=== PATIENT | female | born 1965 | race Caucasian/White ===

== ENCOUNTER 2018-09-16 15:52 | Observation (INO) ==
[2018-09-16] MEDS ORDERED: Aspirin 325 MG TABLET PO ONE (16:09)
[2018-09-16] MEDS: Nitroglycerin 0.4 MG TAB.SUBL SL PRN ×3 (16:32→16:45)
[2018-09-16 16:46] LABS: BUN/Creatinine Ratio 16 (6-26); Blood Urea Nitrogen 14 mg/dL (6-20); Calcium 9.6 mg/dL (8.6-10.3); Carbon Dioxide 23 mEq/L (23-29); Chloride 100 mEq/L (98-107); Glucose 151 mg/dL (70-105); Osmolality,Calculated 279 (280-300); Potassium 3.9 mEq/L (3.5-5.1); Sodium 133 mEq/L (136-145); Troponin I < 0.03 ng/mL (< 0.04); eGFR For Non-African Americans > 60 (> 60)
[2018-09-16] MEDS ORDERED: Nitroglycerin 25 MG/250 ML INFUS..BTL IVC SCH (17:00)
--- NOTE | 2018-09-16 17:21 | Emergency Department Note ---
Disposition Clinical Impression: Chest pain Qualifiers: Chest pain type: unspecified Qualified Code(s): R07.9 - Chest pain, unspecified Disposition: Admitted As Inpatient Condition: Good Time of Disposition: 17:24 General Adult HPI - General Chief complaint: ED Chest Pain Stated complaint: Cp Time Seen by Provider: 09/16/18 16:00 Source: patient Mode of arrival: ambulatory Limitations: no limitations Nursing Notes Reviewed: Yes Vital Signs Reviewed: Yes - History of Present Illness HPI Narrative: 53-year-old female with significant past medical history coronary artery disease with stent placement approximately 8 years ago currently on Plavix and aspirin presenting to the emergency department chief complaint of chest pain. Patient states for the past few days she has had some intermittent chest pains in the left side of her chest. Today the chest pain became significantly worse and started radiating down her left elbow and did not resolve. She states this is exactly how her previous [place] felt. She discloses some diaphoresis and nausea as well. Did not take any medications at home for these symptoms. Pain Scale: 4 - Related Data Home Medications Medication Instructions Recorded Confirmed Clopidogrel [Plavix] 75 mg PO DAILY 06/09/15 09/16/18 Furosemide [Lasix] 40 mg PO DAILY 06/09/15 09/16/18 Aspirin 81 mg PO DAILY 05/02/16 09/16/18 Atorvastatin Calcium [Lipitor] 20 mg PO DAILY 05/02/16 09/16/18 Carvedilol [Coreg] 25 mg PO BID 05/02/16 09/16/18 Citalopram Hydrobromide 40 mg PO DAILY 05/02/16 09/16/18 [Citalopram HBr] DiphenhydraMINE [Benadryl] 50 mg PO QAM 05/02/16 09/16/18 Ibuprofen [Advil] 200 mg PO Q6H PRN 05/02/16 09/16/18 Isosorbide MONOnitrate (24 HR) 90 mg PO DAILY 05/02/16 09/16/18 [Imdur] Lisinopril [Zestril] 5 mg PO DAILY 05/02/16 09/16/18 Orphenadrine Citrate [Orphenadrine 100 mg PO BID 05/02/16 12/01/16 Citrate ER] Oxycodone HCl/Acetaminophen 1 tab PO TID PRN 05/02/16 09/16/18 [Percocet 5-325 mg Tablet] Tramadol HCl [Ultram] 50 mg PO QID PRN 05/02/16 09/16/18 Previous Rx's Medication Instructions Recorded Nitroglycerin [Nitrostat] 0.4 mg SL AD PRN #30 tab.subl 05/03/16 Ondansetron ODT [Zofran ODT] 4 mg SL Q8HR PRN #12 tab.rapdis 10/19/16 Allergies Allergy/AdvReac Type Severity Reaction Status Date / Time naproxen [From Aleve] Allergy Hives Verified 12/01/16 11:11 All systems ED: reviewed and negative except as stated. Constitutional: Denies: fever Eyes: Reports: as per HPI ENT ED: Reports: as per HPI Cardiovascular: Reports: chest pain Respiratory: Denies: dyspnea Gastrointestinal: Reports: nausea Genitourinary: Reports: as per HPI Musculoskeletal: Reports: as per HPI Integumentary: Reports: as per HPI Neurological: Reports: as per HPI Psychiatric: Reports: as per HPI Endocrine: Reports: as per HPI Hematological/Lymphatic: Reports: as per HPI Allergic/Immunologic: Reports: as per HPI Past Medical History - Past Medical History Attestation: Yes The following information was validated with the patient. Medical history: Reports: arthritis, coronary artery disease, GERD, hyperlipidemia, hypertension, myocardial infarction Surgical history: Reports: angioplasty/stent, appendectomy Psychiatric history: Reports: anxiety, depression - Social History Smoking Status: Former smoker Smokeless Tobacco Status: No Alcohol use: Reports: occasionally Drug use: Reports: none Physical Exam - General Limitations: no limitations General appearance: alert, in no apparent distress - Head Head exam: atraumatic, normocephalic, normal inspection - Eye Eye exam: Absent: scleral icterus - ENT ENT exam: mucous membranes moist - Neck Neck exam: Present: full ROM - Chest Chest inspection: Present: symmetric chest wall rise - Respiratory Respiratory exam: Present: normal lung sounds bilaterally. Absent: respiratory distress, wheezes - Cardiovascular Cardiovascular exam: Present: regular rate, normal rhythm, normal heart sounds - Abdominal Exam Abdominal exam: Present: soft, Non-Tender. Absent: distention, guarding, rebound - Extremities Exam Extremities exam: Present: full ROM - Neurological Exam Neurological exam: Present: alert, oriented X3 - Psychiatric Psychiatric exam: Present: anxious - Skin Skin exam: Present: warm Course Course Narrative: 53-year-old female presenting for chest pain. In the room she is alert and oriented 3 and hemodynamically stable. Patient states that these symptoms feel exactly like her previous [place]. Initial EKG does not show any ST segment elevation. We will obtain basic laboratory analysis including troponin and plan for admission for the patient. Patient agrees with this plan. - Reevaluation(s) Reevaluation #1: Patient's laboratory analysis including troponin within normal limits. At this time will plan to admit the patient for further evaluation and treatment of her chest pain. Nitroglycerin trial reduced her pain from 9 to a 4 therefore we will starting nitro drip on the patient to resolve her chest pain. Patient remains alert and oriented 3 and hemodynamically stable. Patient agrees with this plan. I spoke with the hospitalist telecommunications engineer Dr. Benavidez who agrees to accept the patient at this time. Vital Signs Temperature 98.6 F 09/16/18 16:00 Pulse Rate 88 09/16/18 16:00 Respiratory Rate 18 09/16/18 16:00 Blood Pressure 163/98 09/16/18 16:00 O2 Sat by Pulse Oximetry 100 09/16/18 16:00 Temperature 98.6 F 09/16/18 16:00 Pulse Rate 89 09/16/18 16:49 Respiratory Rate 18 09/16/18 16:49 Blood Pressure 130/88 09/16/18 16:49 O2 Sat by Pulse Oximetry 97 09/16/18 16:49 Oxygen Delivery Oxygen Delivery Room Air Medical Decision Making - Lab Data Result diagrams: 09/16/18 17:45 09/16/18 16:13 Lab Results 09/16/18 09/16/18 Range/Units 16:03 16:13 Sodium 133 L (136-145) mEq/L Potassium 3.9 (3.5-5.1) mEq/L Chloride 100 (98-107) mEq/L Carbon Dioxide 23 (23-29) mEq/L BUN 14 (6-20) mg/dL Creatinine 0.85 (0.60-1.20) mg/dL Est GFR ( Amer) > 60 (> 60) Est GFR (Non-Af Amer) > 60 (> 60) BUN/Creatinine Ratio 16 (6-26) Glucose 151 H (70-105) mg/dL Calculated Osmolality 279 L (280-300) Calcium 9.6 (8.6-10.3) mg/dL Troponin I < 0.03 (< 0.04) ng/mL B-Natriuretic Peptide 17 (Less than 100) pg/mL - EKG Data EKG #1 EKG attestation: Yes I reviewed and interpreted this EKG. EKG results narrative: Sinus rhythm. 87 bpm. NH interval 146, QRS 76, QTC 433. No sign of acute ST segment elevation or ischemia. Compared to previous EKG completed on 07/17 2017 no significant changes noted Attestation Statement - Attestation Attestation: I, David Walker, examined this patient and my medical decision-making was reviewed with the SURGICAL ASSISTANT CERTIFIED/PA/Advanced Practice Nurse/Resident Physician. I agree with the documented findings, disposition and treatment plan as described except to the extent set forth below. 51-year-old female presents emergency Department with concerns of acute onset chest pain. Patient states symptoms started today with minimal exertion, she stated the pain was a tightness in the center of her chest that radiated to the left upper extremity and left jaw. Pain improved with nitroglycerin. This feels similar to her previous heart attack. Patient does not have evidence of STEMI on EKG. I reviewed the EKG with the resident and agree with the interpretation. Patient is awake alert and answered questions appropriate emergency department. Vital signs are stable. She is a history of previous stent. She takes Plavix and and aspirin daily. Patient was given additional aspirin in the emergency department. She will be admitted to hospitalist for further care and evaluation. Initial troponin was negative.
[2018-09-16] MEDS ORDERED: *HR* Promethazine 25 MG/ML VIAL IVP PRN (17:27)
[2018-09-16] MEDS ORDERED: Naloxone 0.4 MG/ML INJ IVP PRN (17:27)
[2018-09-16] MEDS ORDERED: Mag Hydrox/Al Hydrox/Simeth 30 ML UDC PO PRN (17:27)
[2018-09-16] MEDS ORDERED: MOM Conc 10 ML UD.LIQ PO PRN (17:27)
[2018-09-16] MEDS ORDERED: Ondansetron 4 MG/2 ML VIAL IVP PRN (17:27)
--- NOTE | 2018-09-16 17:46 | Internal Med History&Physical ---
Date of Encounter: 09/16/18 Time of Encounter: 17:43 Internal Medicine - H&P: HPI Admitted From: Home Plans for Post Hospital Care: Home History of present illness: Ms. Gagnon is a 53 year old female with significant past medical history of coronary artery disease with stents placement approximately 8 years ago currently on Plavix and aspirin presenting to the emergency department chief complaint of chest pain. Patient states for the past few days she has had some intermittent chest pains in the left side of her chest. Today the chest pain became significantly worse and started radiating down her left elbow and did not resolve. She states this is exactly how her previous [place] felt. She discloses some diaphoresis and nausea as well. Did not take any medications at home for these symptoms. En route to the ED, she received 2 doses of NTG with significant relief of chest pain. She smokes in the past but quit about one and half years a go. In the ED, her vitals were stable, labs were unremarkable, EKG and CXR showed no acute concerning changes. She will be admitted for further evaluation. Code status discussed and she wishes to be full code. Past Med Surg Social Fam HX - Past Medical History Medical history: arthritis, coronary artery disease, GERD, hyperlipidemia, hypertension, myocardial infarction Psychiatric history: anxiety, depression - Past Surgical History Surgical History: angioplasty/stent, appendectomy Additional surgical history: tonsils and adenoids, 3 cardiac stents - Social History Smoking Status: Former smoker Smokeless Tobacco Status: No Alcohol use: occasionally Drug use: none - Family History Mother Living Status: Still Living Hx Family Cancer: Yes Father Living Status: Still Living Hx Family Cardiac Disorders: Yes Hx Family Endocrine Disorder: Yes (diabetes) Internal Medicine - H&P: Meds Clopidogrel [Plavix] 75 mg PO DAILY 06/09/15 [History] Furosemide [Lasix] 40 mg PO DAILY 06/09/15 [History] Aspirin 81 mg PO DAILY 05/02/16 [History] Atorvastatin Calcium [Lipitor] 20 mg PO DAILY 05/02/16 [History] Carvedilol [Coreg] 25 mg PO BID 05/02/16 [History] Citalopram Hydrobromide [Citalopram HBr] 40 mg PO DAILY 05/02/16 [History] DiphenhydraMINE [Benadryl] 50 mg PO QAM 05/02/16 [History] Ibuprofen [Advil] 200 mg PO Q6H PRN 05/02/16 [History] Isosorbide MONOnitrate (24 HR) [Imdur] 90 mg PO DAILY 05/02/16 [History] Lisinopril [Zestril] 5 mg PO DAILY 05/02/16 [History] Orphenadrine Citrate [Orphenadrine Citrate ER] 100 mg PO BID 05/02/16 [History] Oxycodone HCl/Acetaminophen [Percocet 5-325 mg Tablet] 1 tab PO TID PRN 05/02/16 [History] Tramadol HCl [Ultram] 50 mg PO QID PRN 05/02/16 [History] Nitroglycerin [Nitrostat] 0.4 mg SL AD PRN #30 tab.subl 05/03/16 [Rx] Ondansetron ODT [Zofran ODT] 4 mg SL Q8HR PRN #12 tab.rapdis 10/19/16 [Rx] Allergy/AdvReac Type Severity Reaction Status Date / Time naproxen [From Aleve] Allergy Hives Verified 12/01/16 11:11 All Systems PM: A 10-system review of systems was performed and is negative for pertinent findings except as documented above in the HPI. Review of systems: REVIEW OF SYSTEMS: CONSTITUTIONAL: No weight loss, fever, chills, weakness or fatigue. HEENT: Eyes: No visual loss, blurred vision, double vision or yellow sclerae. Ears, Nose, Throat: No hearing loss, sneezing, congestion, runny nose or sore throat. SKIN: No rash or itching. CARDIOVASCULAR: see HPI. RESPIRATORY: No shortness of breath, cough or sputum. GASTROINTESTINAL: No anorexia, nausea, vomiting or diarrhea. No abdominal pain or blood. GENITOURINARY: No dysuria, urgency, or frequency. NEUROLOGICAL: No headache, dizziness, syncope, paralysis, ataxia, numbness or tingling in the extremities. No change in bowel or bladder control. MUSCULOSKELETAL: No muscle, back pain, joint pain or stiffness. HEMATOLOGIC: No anemia, bleeding or bruising. LYMPHATICS: No enlarged nodes. No history of splenectomy. PSYCHIATRIC: No history of depression or anxiety. ENDOCRINOLOGIC: No reports of sweating, cold or heat intolerance. No polyuria or polydipsia. - Constitutional Vitals: Temp Pulse Resp BP Pulse Ox 98.6 F 89 18 130/88 97 09/16/18 16:00 09/16/18 16:49 09/16/18 16:49 09/16/18 16:49 09/16/18 16:49 General appearance: Present: cooperative, A&O X 3, answers questions appropriately Exam: PHYSICAL EXAMINATION: GENERAL APPEARANCE: The patient is alert, oriented and in no acute distress. HEENT: Head is normocephalic. The sinuses are nontender. Pupils are equal and reactive. The nares are patent. Oropharynx clear without lesions. NECK: Supple without lymphadenopathy. HEART: Regular rate and rhythm. LUNGS: No crackles or wheezes are heard. ABDOMEN: Soft, nontender, nondistended with good bowel sounds heard. Inguinal area is normal. EXTREMITIES: Without cyanosis, clubbing or edema. NEUROLOGICAL: Gross nonfocal. SKIN: Warm and dry without any rash. Internal Med - H&P Results - Labs CBC & Chem 7: 09/16/18 16:13 Labs: BMP 09/16/18 16:13 Sodium 133 L Potassium 3.9 Chloride 100 Carbon Dioxide 23 BUN 14 Creatinine 0.85 Glucose 151 H Calcium 9.6 Cardiac Enzymes 09/16/18 Range/Units 16:13 Troponin I < 0.03 (< 0.04) ng/mL - Impressions ITS Impressions Chest X-Ray 09/16/18 16:03 IMPRESSION: No acute cardiopulmonary process D/ / Ok Frankel / Ok Frankel Interpreting Provider: Ok Frankel - Assessment and Plan (1) Chest pain Current Visit: Yes Status: Acute Assessment and plan: 54-year-old female with past medical history of hypertension, hyperlipidemia, formal smoker, and CAD with stents presented with acute onset of left-sided chest pain. Pressure-like, radiated to the left arm, relieved by nitroglycerin. She had 2 stents placed in LAD and RCA in 2010. She was placed on DAPT until today and she reported compliant with medications. Recent cardiac workup was about 2 years ago, when a stress test was abnormal, cardiology was consulted at that time, medical management was recommended. First set of troponin was negative, EKG has no acute ST-T change. We will continue cycling troponin, telemetry monitoring, EKG as needed. Echocardiogram and a stress nuclear test in a.m. Cardiology consulted, appreciate help. Qualifiers: Chest pain type: unspecified Qualified Code(s): R07.9 - Chest pain, unspecified (2) CAD (coronary artery disease) Current Visit: No Status: Acute Assessment and plan: Continue home medications including DAPT. Qualifiers: Coronary Disease-Associated Artery/Lesion type: [place] artery [place] vs. transplanted heart: [place] heart Associated angina: with other forms of angina Qualified Code(s): I25.118 - Atherosclerotic heart disease of [place] coronary artery with other forms of angina pectoris (3) Hypertension Current Visit: No Status: Chronic Assessment and plan: BP controlled, continue home medications. Qualifiers: Hypertension type: essential hypertension Qualified Code(s): I10 - Essential (primary) hypertension (4) Cervical radiculopathy Current Visit: No Status: Chronic Assessment and plan: Pain control. (5) DVT prophylaxis Current Visit: Yes Status: Acute Assessment and plan: Heparin subcutaneous. - Time Spent With Patient Total time spent is greater than 50% in coordination of care (as documented) at patient's floor/unit and/or counseling patient: Greater than 35 minutes
[2018-09-16 18:20] LABS: Basophils # 0.1 K/mcL (0.0-0.2); Basophils % 0.9 %; Eosinophils # 0.1 K/mcL (0.0-0.6); Hematocrit 37.9 % (35.3-44.9); Immature Granulocytes % 0.3 % (0-4); Lymphocytes # 1.6 K/mcL (0.6-4.6); Lymphocytes % 20.3 %; Mean Corpuscular HGB Conc 34.3 g/dL (31.6-35.5); Mean Corpuscular Hemoglobin 32.5 pg (28.0-33.3); Mean Corpuscular Volume 94.8 fL (83.0-100.0); Mean Platelet Volume 9.5 fL (9.4-12.4); Monocytes # 0.7 K/mcL (0.0-1.3); Monocytes % 8.3 %; Neutrophils # 5.4 K/mcL (1.6-8.9); Platelet Count 229 K/mcL (140-400); Red Cell Distribution Width 12.7 % (11.5-14.5); Segmented Neutrophils % 69.2 %
[2018-09-16] MEDS: *HR* Heparin 5,000 UNIT/ML VIAL SQ SCH (18:29)
[2018-09-16] MEDS: traMADol 50 MG TABLET PO PRN (20:04)
[2018-09-16] MEDS ORDERED: Isosorbide MONOnitrate (24 HR) 30 MG TAB.ER.24H PO SCH (21:00)
[2018-09-16] MEDS: Venlafaxine XR (24 HR) 75 MG CAP.ER.24H PO SCH (22:11)
[2018-09-17] MEDS: *HR* Heparin 5,000 UNIT/ML VIAL SQ SCH (05:37)
--- NOTE | 2018-09-17 05:54 | Cardiology Consult Note ---
Date of Encounter: 09/17/18 Time of Encounter: 05:50 Assessment and Plan (1) Unstable angina Current Visit: Yes Status: Acute (2) Smoker Current Visit: No Status: Acute Discussion w patient/family: The assessment and plan as outlined above was discussed with the patient and/or family members who expressed understanding and agreement. All questions were answered. Thank you for involving us in the care of your patient. Please call with any questions. History of Present Illness Consult date: 09/17/18 Consult reason: unstable angina Chief complaint: chest pain History of present illness: Ms. Gagnon is a 53 year old female w CAD sp anterior STEMI 2010, HTN, dyslipidemia, DM, previous smoker. She presents with her typical angina, severe retrosternal radiating pain to her left elbow. 2 NTG in ED relieved the pain and she has been comfortable overnight. She last fu with [facility] in 2013. She notes recent panic attacks being treated which is a chest tightness / discomfort. Her angina is left elbow and into upper back. This was first time in a long time of her angina starting in her elbow, then later had a panic attack. Past Med Surg Social Fam HX - Past Medical History Medical history: arthritis, coronary artery disease, GERD, hyperlipidemia, hypertension, myocardial infarction Psychiatric history: anxiety, depression - Past Surgical History Surgical History: angioplasty/stent, appendectomy Additional surgical history: tonsils and adenoids, 3 cardiac stents - Social History Smoking Status: Former smoker Smokeless Tobacco Status: No Alcohol use: occasionally Drug use: none - Family History Mother Living Status: Still Living Hx Family Cancer: Yes Father Living Status: Still Living Hx Family Cardiac Disorders: Yes Hx Family Endocrine Disorder: Yes (diabetes) Medications and Allergies Clopidogrel [Plavix] 75 mg PO DAILY 06/09/15 [History] Furosemide [Lasix] 40 mg PO DAILY 06/09/15 [History] Aspirin 81 mg PO DAILY 05/02/16 [History] Atorvastatin Calcium [Lipitor] 20 mg PO DAILY 05/02/16 [History] Carvedilol [Coreg] 25 mg PO BID 05/02/16 [History] Citalopram Hydrobromide [Citalopram HBr] 40 mg PO DAILY 05/02/16 [History] DiphenhydraMINE [Benadryl] 50 mg PO QAM 05/02/16 [History] Ibuprofen [Advil] 200 mg PO Q6H PRN 05/02/16 [History] Isosorbide MONOnitrate (24 HR) [Imdur] 90 mg PO DAILY 05/02/16 [History] Lisinopril [Zestril] 5 mg PO DAILY 05/02/16 [History] Orphenadrine Citrate [Orphenadrine Citrate ER] 100 mg PO BID 05/02/16 [History] Oxycodone HCl/Acetaminophen [Percocet 5-325 mg Tablet] 1 tab PO TID PRN 05/02/16 [History] Tramadol HCl [Ultram] 50 mg PO QID PRN 05/02/16 [History] Nitroglycerin [Nitrostat] 0.4 mg SL AD PRN #30 tab.subl 05/03/16 [Rx] Ondansetron ODT [Zofran ODT] 4 mg SL Q8HR PRN #12 tab.rapdis 10/19/16 [Rx] Venlafaxine XR (24 HR) [Effexor XR] 75 mg PO DAILY 09/16/18 [History] Allergy/AdvReac Type Severity Reaction Status Date / Time naproxen [From Aleve] Allergy Hives Verified 12/01/16 11:11 All Systems Review: The remainder of the systems were reviewed and are negative - Constitutional Constitutional: no chills, no fever(s) - EENT Eyes: no blurred vision, no loss of vision Nose, mouth and throat: no bleeding gums, no epistaxis - Cardiovascular Cardiovascular: chest pain at rest, chest pain with exertion, no syncope - Respiratory Respiratory: no hemoptysis - Gastrointestinal Gastrointestinal: no hematemesis, no hematochezia - Genitourinary Genitourinary: no hematuria, no nocturia - Musculoskeletal Musculoskeletal: no arthralgias, no myalgias - Integumentary Integumentary: no erythema, no rash - Neurological Neurological: no memory loss, no syncope - Psychiatric Psychiatric: no hallucinations, no panic attacks - Hematological/Lymphatic Hematologic/Lymphatic: no easy bleeding, no easy bruising Physical Examination Vital Signs, Last 4 Hours Temp Pulse Resp BP Pulse Ox 09/17/18 03:30 98.0 F 63 18 118/77 97 General: Conversant HEENT: Atraumatic Neck: No JVD Cardiac: Reg Rate and Rhythm Lungs: Normal Breath Sounds Neuro: Alert and responsive Abdomen: Soft Skin: No rashes noted on visualized skin Musculoskeletal: No Chest Wall Tenderness Extremities: No Edema Results 09/17/18 09:16 09/17/18 09:16 Lab Results 09/16/18 09/16/18 09/16/18 16:03 16:13 17:45 WBC 7.8 Hgb 13.0 Hct 37.9 Plt Count 229 Sodium 133 L Potassium 3.9 Chloride 100 Carbon Dioxide 23 BUN 14 Creatinine 0.85 Glucose 151 H Calcium 9.6 Troponin I < 0.03 B-Natriuretic Peptide 17 09/16/18 22:35 WBC Hgb Hct Plt Count Sodium Potassium Chloride Carbon Dioxide BUN Creatinine Glucose Calcium Troponin I < 0.03 B-Natriuretic Peptide Consult Discharge Plan - Plan Referrals: Miguel Angel Vasquez DO [Primary Care Provider] - (Appointment has been requested.)
[2018-09-17] MEDS ORDERED: Aspirin 81 MG TAB.CHEW PO SCH (09:00)
[2018-09-17] MEDS ORDERED: Isosorbide MONOnitrate (24 HR) 30 MG TAB.ER.24H PO SCH (09:00)
[2018-09-17] MEDS ORDERED: Furosemide 40 MG TABLET PO SCH (09:00)
[2018-09-17 10:12] LABS: Alanine Aminotransferase 23 Units/L (7-52); Albumin/Globulin Ratio 1.9 (1.1-2.2); Alkaline Phosphatase 58 Units/L (34-104); Aspartate Amino Transferase 19 Units/L (13-39); BUN/Creatinine Ratio 18 (6-26); Bilirubin,Total 0.4 mg/dL (0.3-1.0); Blood Urea Nitrogen 13 mg/dL (6-20); Calcium 8.9 mg/dL (8.6-10.3); Carbon Dioxide 24 mEq/L (23-29); Chloride 106 mEq/L (98-107); Chol/HDL Ratio 2.5 (0-4.9); Cholesterol 136 mg/dL (< 200); Globulin 2.1 g/dL (2.4-3.5); Glucose 144 mg/dL (70-105); HDL Cholesterol 55 mg/dL (40-59); LDL Cholesterol,Calculated 36 mg/dL (0-99); Magnesium 1.8 mg/dL (1.6-2.6); Osmolality,Calculated 287 (280-300); Potassium 3.9 mEq/L (3.5-5.1); Sodium 137 mEq/L (136-145); Total Protein 6.1 g/dL (6.4-8.9); Triglycerides 223 mg/dL (< 150); eGFR For Non-African Americans > 60 (> 60)
[2018-09-17] MEDS ORDERED: Regadenoson 0.4 MG/5 ML SYRINGE IVP ONE (10:12)
[2018-09-17 10:30] LABS: Basophils % 0.7 %; Eosinophils # 0.1 K/mcL (0.0-0.6); Eosinophils % 2.6 %; Hematocrit 39.1 % (35.3-44.9); Hemoglobin 13.1 g/dL (11.5-15.4); Immature Granulocytes % 0.2 % (0-4); Lymphocytes # 1.7 K/mcL (0.6-4.6); Lymphocytes % 31.7 %; Mean Corpuscular HGB Conc 33.5 g/dL (31.6-35.5); Mean Corpuscular Hemoglobin 32.5 pg (28.0-33.3); Mean Platelet Volume 9.6 fL (9.4-12.4); Monocytes # 0.5 K/mcL (0.0-1.3); Monocytes % 10.1 %; Neutrophils # 2.9 K/mcL (1.6-8.9); Platelet Count 197 K/mcL (140-400); Red Blood Count 4.03 M/mcL (3.82-4.97); Red Cell Distribution Width 13.1 % (11.5-14.5); Segmented Neutrophils % 54.7 %
--- NOTE | 2018-09-17 11:07 | Internal Med Progress Note ---
Hospitalist Progress Note - Encounter Date of Encounter: 09/17/18 Time of Encounter: 11:05 - Subjective Interval History: She is seen and examined in the room. She has no chest pain currently. - Exam Vitals: Temp Pulse Resp BP Pulse Ox 98.3 F 67 17 126/79 97 09/17/18 10:46 09/17/18 10:46 09/17/18 10:46 09/17/18 10:46 09/17/18 10:46 Exam: PHYSICAL EXAMINATION: GENERAL APPEARANCE: The patient is alert, oriented and in no acute distress. HEENT: Head is normocephalic. The sinuses are nontender. Pupils are equal and reactive. The nares are patent. Oropharynx clear without lesions. NECK: Supple without lymphadenopathy. HEART: Regular rate and rhythm. LUNGS: No crackles or wheezes are heard. ABDOMEN: Soft, nontender, nondistended with good bowel sounds heard. Inguinal area is normal. EXTREMITIES: Without cyanosis, clubbing or edema. NEUROLOGICAL: Gross nonfocal. SKIN: Warm and dry without any rash. - Assessment and Plan (1) Chest pain Current Visit: Yes Status: Acute Assessment and Plan: 09/16 54-year-old female with past medical history of hypertension, hyperlipidemia, formal smoker, and CAD with stents presented with acute onset of left-sided chest pain. Pressure-like, radiated to the left arm, relieved by nitroglycerin. She had 2 stents placed in LAD and RCA in 2010. She was placed on DAPT until today and she reported compliant with medications. Recent cardiac workup was about 2 years ago, when a stress test was abnormal, cardiology was consulted at that time, medical management was recommended. First set of troponin was negative, EKG has no acute ST-T change. We will continue cycling troponin, telemetry monitoring, EKG as needed. Echocardiogram and a stress nuclear test in a.m. Cardiology consulted, appreciate help. 09/17 Was negative 3, EKG has no acute ST-T change, echocardiogram no motion abnormal ity. Pending stress test. Cardiology following, appreciate help. (2) CAD (coronary artery disease) Current Visit: No Status: Acute Assessment and Plan: Continue home medications including DAPT. (3) Hypertension Current Visit: No Status: Chronic Assessment and Plan: BP controlled, continue home medications. (4) Cervical radiculopathy Current Visit: No Status: Chronic Assessment and Plan: Pain control. (5) DVT prophylaxis Current Visit: Yes Status: Acute Assessment and Plan: Heparin subcutaneous. - Time Spent with Patient Total time spent is greater than 50% in coordination of care (as documented) at patient's floor/unit and/or counseling patient: Greater than 35 minutes Plan of Care Discussed with: patient Internal Medicine: Result - Labs CBC & Chem 7: 09/17/18 09:16 09/17/18 09:16 Labs: Short CBC 09/16/18 09/17/18 Range/Units 17:45 09:16 WBC 7.8 5.4 (4.3-11.1) K/mcL Hgb 13.0 13.1 (11.5-15.4) g/dL Hct 37.9 39.1 (35.3-44.9) % Plt Count 229 197 (140-400) K/mcL Neutrophils # 5.4 2.9 (1.6-8.9) K/mcL BMP 09/16/18 09/17/18 16:13 09:16 Sodium 133 L 137 Potassium 3.9 3.9 Chloride 100 106 Carbon Dioxide 23 24 BUN 14 13 Creatinine 0.85 0.74 Glucose 151 H 144 H Calcium 9.6 8.9 Cardiac Enzymes 09/16/18 09/16/18 09/17/18 Range/Units 16:13 22:35 09:16 Troponin I < 0.03 < 0.03 < 0.03 (< 0.04) ng/mL Liver Function 09/17/18 Range/Units 09:16 Total Bilirubin 0.4 (0.3-1.0) mg/dL AST 19 (13-39) Units/L ALT 23 (7-52) Units/L Alkaline Phosphatase 58 (34-104) Units/L Albumin 4.0 (3.5-5.7) g/dL - Impressions Impressions Chest X-Ray 09/16/18 16:03 IMPRESSION: No acute cardiopulmonary process D/ / Ok rFankel / Ok Frankel Interpreting Provider: Ok Frankel Echocardiogram 09/16/18 17:29 Impressions: LVEF 60-65%. Normal LV chamber size, wall thickness and function. Normal right ventricular structure and function. No significant valvular dysfunction. No evidence of pulmonary hypertension. Left Ventricular Wall Motion: Rest Echo Findings All wall segments showed normal motion. Findings: Study Quality * Technically sub-optimal due to poor echocardiographic windows. ECG Findings * Normal sinus rhythm. Left Ventricle * LVEF 60-65%. * Normal LV chamber size, wall thickness and systolic function. * Normal left ventricular diastolic function. Right Ventricle * Normal right ventricular structure and function. Left Atrium * Normal left atrial size. Right Atrium * Normal right atrial size. Interatrial Septum * Interatrial septum not well evaluated. Aortic Valve * Aortic valve not well visualized. * No aortic stenosis. * No aortic regurgitation. Mitral Valve * Normal mitral valve structure. * No mitral stenosis. * Trace mitral regurgitation. Tricuspid Valve * Normal tricuspid valve structure. * No tricuspid stenosis. * Trace tricuspid regurgitation. * Unable to estimate RVSP due to lack of TR jet. * No evidence of pulmonary hypertension. * Estimated RA pressure is 3 mmHg. Pulmonic Valve * Pulmonic valve is not well visualized. * No pulmonic stenosis. * No pulmonic regurgitation. Aorta * Normally sized aortic root. Pericardium * The pericardium appears normal. IVC * The IVC is not dilated. * > 50% respiratory change Consult Discharge Plan - Plan Referrals: Miguel Angel Vasquez DO [Primary Care Provider] - (Appointment has been requested.) (1) Chest pain Qualifiers: Chest pain type: unspecified Qualified Code(s): R07.9 - Chest pain, unspecified (2) CAD (coronary artery disease) Qualifiers: Coronary Disease-Associated Artery/Lesion type: [place] artery [place] vs. transplanted heart: [place] heart Associated angina: with other forms of angina Qualified Code(s): I25.118 - Atherosclerotic heart disease of [place] coronary artery with other forms of angina pectoris (3) Hypertension Qualifiers: Hypertension type: essential hypertension Qualified Code(s): I10 - Essential (primary) hypertension
[2018-09-17] MEDS: Venlafaxine XR (24 HR) 75 MG CAP.ER.24H PO SCH (14:10)
[2018-09-17 15:14] VITALS: BP 118/76
--- NOTE | 2018-09-17 15:18 | Discharge Summary ---
- NOTES TO OUTPATIENT PROVIDER Notes to Outpatient Provider: f/u with PCP within 2 weeks. f/u with cardiology within a month. Orders not resulted at time of discharge: Pending orders 09/17/18 10:35 NM woo perf SPECT multi [NM] Routine Date of Encounter: 09/17/18 Time of Encounter: 15:14 - Discharge Diagnosis (1) Chest pain Priority: Primary Status: Acute Qualifiers: Chest pain type: unspecified Qualified Code(s): R07.9 - Chest pain, unspecified (2) CAD (coronary artery disease) Priority: Secondary Status: Chronic Qualifiers: Coronary Disease-Associated Artery/Lesion type: [place] artery [place] vs. transplanted heart: [place] heart Associated angina: with other forms of angina Qualified Code(s): I25.118 - Atherosclerotic heart disease of [place] coronary artery with other forms of angina pectoris (3) Hypertension Priority: Secondary Status: Chronic Qualifiers: Hypertension type: essential hypertension Qualified Code(s): I10 - Essential (primary) hypertension (4) Cervical radiculopathy Priority: Secondary Status: Chronic (5) DVT prophylaxis Priority: Primary Status: Acute Hospital course: Ms. Gagnon is a 53 year old female with significant past medical history of coronary artery disease with stents placement approximately 8 years ago currently on Plavix and aspirin presenting to the emergency department chief complaint of chest pain. Patient states for the past few days she has had some intermittent chest pains in the left side of her chest. Today the chest pain became significantly worse and started radiating down her left elbow and did not resolve. She states this is exactly how her previous [place] felt. She discloses some diaphoresis and nausea as well. Did not take any medications at home for these symptoms. En route to the ED, she received 2 doses of NTG with significant relief of chest pain. She smokes in the past but quit about one and half years ago. In the ED, her vitals were stable, labs were unremarkable, EKG and CXR showed no acute concerning changes. She was admitted for further evaluation. Further tests showed negative troponin for 3 sets, normal ecg without acute st-t changes. Echo was performed which showed normal EF without structural abnormalities. Stress tests re-demonstrated a fixed old scar without acute reversible ischemic change. Cardiology was consulted and medical management was recommended. Pt will be discharged home and f/u with PCP within 2 weeks. Discharge discussed with: patient Time spent discussing smoking cessation with patient: more than 10 minutes - Time Spent with Patient Total time spent providing and/or coordinating discharge services: Time spent: Greater than 30 minutes - Discharge Medications Prescriptions: Continued Clopidogrel [Plavix] 75 mg PO DAILY Furosemide [Lasix] 40 mg PO DAILY Tramadol HCl [Ultram] 50 mg PO QID PRN PRN Reason: Pain Aspirin 81 mg PO DAILY Lisinopril [Zestril] 5 mg PO DAILY Isosorbide MONOnitrate (24 HR) [Imdur] 90 mg PO DAILY Carvedilol [Coreg] 25 mg PO BID Oxycodone HCl/Acetaminophen [Percocet 5-325 mg Tablet] 1 tab PO TID PRN PRN Reason: Pain Orphenadrine Citrate [Orphenadrine Citrate ER] 100 mg PO BID DiphenhydraMINE [Benadryl] 50 mg PO QAM Citalopram Hydrobromide [Citalopram HBr] 40 mg PO DAILY Atorvastatin Calcium [Lipitor] 20 mg PO DAILY Nitroglycerin [Nitrostat] 0.4 mg SL AD PRN #30 tab.subl PRN Reason: Chest Pain Ondansetron ODT [Zofran ODT] 4 mg SL Q8HR PRN #12 tab.rapdis PRN Reason: Nausea Venlafaxine XR (24 HR) [Effexor XR] 75 mg PO DAILY Discontinued Ibuprofen [Advil] 200 mg PO Q6H PRN PRN Reason: Pain Home Medications: Clopidogrel [Plavix] 75 mg PO DAILY 06/09/15 [History] Furosemide [Lasix] 40 mg PO DAILY 06/09/15 [History] Aspirin 81 mg PO DAILY 05/02/16 [History] Atorvastatin Calcium [Lipitor] 20 mg PO DAILY 05/02/16 [History] Carvedilol [Coreg] 25 mg PO BID 05/02/16 [History] Citalopram Hydrobromide [Citalopram HBr] 40 mg PO DAILY 05/02/16 [History] DiphenhydraMINE [Benadryl] 50 mg PO QAM 05/02/16 [History] Isosorbide MONOnitrate (24 HR) [Imdur] 90 mg PO DAILY 05/02/16 [History] Lisinopril [Zestril] 5 mg PO DAILY 05/02/16 [History] Orphenadrine Citrate [Orphenadrine Citrate ER] 100 mg PO BID 05/02/16 [History] Oxycodone HCl/Acetaminophen [Percocet 5-325 mg Tablet] 1 tab PO TID PRN 05/02/16 [History] Tramadol HCl [Ultram] 50 mg PO QID PRN 05/02/16 [History] Nitroglycerin [Nitrostat] 0.4 mg SL AD PRN #30 tab.subl 05/03/16 [Rx] Ondansetron ODT [Zofran ODT] 4 mg SL Q8HR PRN #12 tab.rapdis 10/19/16 [Rx] Venlafaxine XR (24 HR) [Effexor XR] 75 mg PO DAILY 09/16/18 [History] Allergies/Adverse Reactions: Allergy/AdvReac Type Severity Reaction Status Date / Time naproxen [From Aleve] Allergy Hives Verified 12/01/16 11:11 Date of admission: 09/16/18 17:10 Primary care physician: Filiberto Vasquez DO Consults: 09/16/18 17:30 Consult to Cardiology [CONS] Routine Comment: Consulting Provider: Cardiology [place] Reason for Consult: CP, Hx of stent Call Completed: Yes Anticipated date of discharge: 09/17/18 - Constitutional Vitals: Temp Pulse Resp BP Pulse Ox 98.3 F 67 17 126/79 97 09/17/18 10:46 09/17/18 10:46 09/17/18 10:46 09/17/18 10:46 09/17/18 10:46 General appearance: Present: cooperative, A&O X 3, answers questions appropriately Exam: PHYSICAL EXAMINATION: GENERAL APPEARANCE: The patient is alert, oriented and in no acute distress. HEENT: Head is normocephalic. The sinuses are nontender. Pupils are equal and reactive. The nares are patent. Oropharynx clear without lesions. NECK: Supple without lymphadenopathy. HEART: Regular rate and rhythm. LUNGS: No crackles or wheezes are heard. ABDOMEN: Soft, nontender, nondistended with good bowel sounds heard. Inguinal area is normal. EXTREMITIES: Without cyanosis, clubbing or edema. NEUROLOGICAL: Gross nonfocal. SKIN: Warm and dry without any rash. - Patient Status Disposition: Home, Self-Care Condition: Good Functional capacity at discharge: independent ambulation Overall status at discharge: patient is progressing back to baseline - Discharge Instructions Follow Up With: Miguel Angel Vasquez DO [Primary Care Provider] - (Appointment has been requested.) Forms: ED Satisfaction Letter - Diet and Activity Activity: increase activity as tolerated Diet: low fat, low cholesterol, low salt diet
[2018-09-17] MEDS: traMADol 50 MG TABLET PO PRN (15:28)
--- NOTE | 2018-09-19 08:39 | Electrocardiograph Report ---
[place] [id number] Test Date: 2018-09-16 Pat Name: Jocelyn Gagnon Department: EXAM4 Room: 3B54 Gender: F [employer]member: : 1965 Requested By: Lorna Shankar Order Number: [id number] Reading MD: Raad Collier Measurements Intervals [place] Rate: 87 P: 46 NE: 146 QRS: -1 QRSD: 76 T: 35 QT: 360 QTc: 433 Interpretive Statements Sinus rhythm Low voltage, precordial leads Anteroseptal infarct, old Electronically Signed On 09-19-2018 8:38:34 EDT by Raad Collier
== END 2018-09-17 16:28 | disposition home or self-care (01) ==
LOC: 3BNU 15:52 → EMEROOARM 15:52 → 3BNU 17:41
PROVIDERS: ADMIT Internal Medicine Nephrology; ATTEND Internal Medicine Nephrology